=== PATIENT | male | born 1995 | race Two or more races ===

== ENCOUNTER 2025-05-08 20:27 | Emergency (ER) | payer OTHER ==
[~2025-05-08] VITALS: Ht 162.6 cm; Wt 66.7 kg
[2025-05-08] MEDS ORDERED: AUG875T PO (21:28)
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
[2025-05-08] MEDS: TETANUS-DIPTH-ACEL PERTUSSIS 0.5ML SYR Tdap IM ONE (22:58)
[2025-05-08 23:04] VITALS: BP 131/89; PULSE 68; RESP 18; TEMP 98.6; O2SAT 100
== END 2025-05-08 23:06 | disposition home or self-care (01) ==
LOC: ER 20:27
DX: S81.831A Puncture wound without foreign body, right lower leg, initial encounter (principal); W54.0XXA Bitten by dog, initial encounter; Y93.89 Activity, other specified; Y92.89 Other specified places as the place of occurrence of the external cause; Y99.8 Other external cause status
CPT/HCPCS: 90471; 90715